=== PATIENT | male | born 1955 | race Caucasian/White ===

== ENCOUNTER 2016-06-19 11:11 | Inpatient (IN) | payer BC, MEDICARE ==
[2016-06-14 14:22] LABS: BASOPHILS 0.2 %; BASOPHILS ABSOLUTE 0.02 10/3/uL (0.0-0.16); EOSINOPHILS ABSOLUTE 0.08 10/3/uL (0.0-0.53); HEMATOCRIT 41.1 % (40.0-51.0); HEMOGLOBIN 12.6 g/dL (13.6-17.8); IMMATURE GRANULOCYTES 0.5 %; IMMATURE GRANULOCYTES ABSOLUTE 0.04 10/3/uL (0.0-0.11); LYMPHOCYTES 27.8 %; MEAN CORPUS HGB CONC 30.7 g/dL (32.0-36.0); MEAN CORPUSCULAR HEMOGLOB 25.9 pg (26.0-34.0); MEAN CORPUSCULAR VOLUME 84.4 fL (80-100); MONOCYTES 6.9 %; MONOCYTES ABSOLUTE 0.57 10/3/uL (0.21-1.20); NEUTROPHILS 63.6 %; NEUTROPHILS ABSOLUTE 5.27 10/3/uL (2.02-8.40); PLATELET COUNT 264 10/3/uL (150-400); RBC DISTRIBUTION WIDTH 13.8 % (12.0-16.0); RED CELL COUNT 4.87 10/6/uL (4.7-6.1); WHITE BLOOD CELLS 8.3 10/3/uL (4.5-10.5)
[2016-06-14 14:23] LABS: MANUAL DIFF NO %
[2016-06-14 14:30] LABS: BUN (BLOOD UREA NITROGEN) 20 MG/DL (6-23); CALCIUM, SERUM 9.2 MG/DL (8.5-10.4); CHLORIDE, SERUM 110 MMOL/L (96-112); CO2 (CARBON DIOXIDE) 29 MMOL/L (24-34); CREATININE 0.86 MG/DL (0.70-1.30); GFR AFRICAN AMERICAN 108 ML/MIN (>=60); GFR NON AFRICAN AMERICAN 94 ML/MIN (>=60); GLUCOSE, SERUM 132 MG/DL (60-99); POTASSIUM, SERUM 3.8 MMOL/L (3.5-5.3); SODIUM, SERUM 146 MMOL/L (135-148)
[2016-06-14 14:33] LABS: INTERNATIONAL NORMAL RATI 1.1 UNITS (-); PARTIAL THROMBO TIME 28.9 SEC (22.5-37.2); PROTIME (NOT ORD) 13.9 SEC (12.0-14.5)
--- NOTE | ~2016-06-19 | CN ---
Consultation Report [facility] [address] [facility] [place]. [address] NAME: CHERISE VALENTINE : 53 STATUS : ADM Chuck PAT#: [id number] AGE: 60 ADM/REG DATE : 06/19/16 MR#: [id number] REPORT SERV DATE: 06/22/16 DICTATED BY: LION AGUSTIN DATE: 06/22/16 REPORT STATUS : Draft TRANSCRIBED BY: MODL DATE: 06/22/16 CARDIOVASCULAR CONSULTATION DATE OF CONSULTATION: This cardiovascular consultation requested by Dr. Alireza Mead. INDICATION: Tachycardia, PVCs. HISTORY OF PRESENT ILLNESS: Mr. Valentine is a 60-year-old patient of my partner, Dr. Riccardo Bernal. He has a previous history of PVCs, after that he is asymptomatic. He was managed conservatively and not on rate control medications as an outpatient. He is admitted with obstructing kidney stones. He is status post bilateral percutaneous nephrostomy tubes and has undergone lithotripsy. He has had a number of urologic procedures this admission. In this setting, his heart rate has been up in the 110 beat per minute range with more frequent PVCs noted on shelter monitor. He complains of no symptoms of chest pain or dyspnea. He feels well. We are consulted for further management. PAST MEDICAL HISTORY: 1. Hypertension. 2. PVCs. 3. Type 2 diabetes. 4. Arthritis. 5. Kidney stones. ALLERGIES: INCLUDE TAMIFLU. HOME MEDICATIONS: Include Norvasc 10 mg daily, Lotensin 40 mg daily, vitamin B 12, Neurontin, HCTZ 25 mg daily, hydrocodone, Skelaxin, Glucophage, Prilosec, and simvastatin 20 mg daily. SOCIAL HISTORY: He does not smoke or drink alcohol. FAMILY HISTORY: There is no family history of early coronary artery disease. REVIEW OF SYSTEMS: A complete review of systems was obtained, which is negative in detail except as mentioned above in the HPI. PHYSICAL EXAMINATION: VITAL SIGNS: Blood pressure 110/70, heart rate of 115, respiratory rate of 14. GENERAL: Comfortable in no acute distress. HEENT: Anicteric. No xanthelasma. Lips without cyanosis. NECK: No JVD. Carotids 2+ and symmetric. No carotid bruits. LUNGS: CTA bilaterally. No wheezes or rhonchi. No accessory muscle use. Consultation Report [facility] [address] [address] NAME: CHERISE VALENTINE : 53 STATUS : ADM Chuck PAT#: [id number] AGE: 60 ADM/REG DATE : 06/19/16 MR#: [id number] REPORT SERV DATE: 06/22/16 DICTATED BY: LION AGUSTIN DATE: 06/22/16 REPORT STATUS : Draft TRANSCRIBED BY: MODL DATE: 06/22/16 CARDIAC: Tachycardic. Regular. Normal S1, S2. ABD: Soft, nontender, nondistended. Normal bowel sounds. No abdominal bruits. EXT: No clubbing, cyanosis or edema 2+ and symmetric distal pulses. SKIN: Warm. Dry. No venous stasis changes. MS: No kyphosis. NEURO/PSYCH: Oriented x3. No anxiety or depression. LABORATORY STUDIES: White count of 14.5, hematocrit of 41.8, INR of 1.1. Creatinine of 1.09, potassium of 3.8. EKG: A 12-lead EKG shows sinus tachycardia, rate of 123 beats per minute. Left anterior fascicular block is noted. QRS duration 120 milliseconds. IMPRESSION: Mr. Valentine is a 60-year-old man with a history of premature ventricular contraction, now with sinus tachycardia postop from a bilateral nephrostomy tube placement and lithotripsy. I think the sinus tachycardia is likely driven by pain. He has no symptoms of dyspnea or chest pain to suggest a pulmonary embolus. I agree with the short- term use of metoprolol 25 mg twice a day, as already prescribed. I do not think he will need long-term metoprolol at discharge. He has to follow up with Dr. Bernal in July. For now, I have not recommended any further evaluations or treatment aside from the above. JOHN/BERNICE Lion Agustin M.D. / [id number] CC: Cheryle Talley M.D.
--- NOTE | ~2016-06-19 | OP ---
Record Of Operation [facility] [address] [place]. [address] NAME: CHERISE VALENTINE : 53 STATUS : ADM Chuck PAT#: [id number] AGE: 60 ADM/REG DATE : 06/19/16 MR#: [id number] REPORT SERV DATE: 06/20/16 DICTATED BY: DALIA ESQUIVEL LEEANNE DATE: 06/19/16 REPORT STATUS : Draft TRANSCRIBED BY: MODL DATE: 06/19/16 DATE OF PROCEDURE: PREOPERATIVE DIAGNOSIS: Right kidney stone. POSTOPERATIVE DIAGNOSIS: Right kidney stone. PROCEDURE PERFORMED: Right percutaneous nephrolithotomy (less than 2 cm). SURGEON: Dalia Esquivel M.D. ANESTHESIA: General. COMPLICATIONS: None. DRAINS: 1. Fields catheter. 2. An 18-Stateless [place] tip catheter as a right nephrostomy tube. 3. A 5-Stateless open-ended catheter as a right antegrade ureteral stent. ESTIMATED BLOOD LOSS: 100 mL. COMPLICATIONS: None. INDICATIONS: Mr. Valentine is a 60-year-old with bilateral branched renal stones. He has intermittently had pain on the right. He has a 1.4-cm stone on that side. He underwent attempted shock wave lithotripsy of this symptomatic lower pole stone, there was essentially no fragmentation. He presents for right PCNL. The plan is for left PCNL in 48 hours' time. TECHNIQUE: An informed consent was obtained. He received Levaquin preoperatively. He was taken to interventional Radiology. Bilateral nephrostomy tube access was obtained. He was brought to the Urology Operating Room, a Fields catheter was placed as were SCDs. He was positioned prone, care was taken to pad all pressure points. The left nephrostomy was left to gravity drainage. The right nephrostomy including the right flank were prepped and draped in sterile fashion, and under fluoroscopic guidance, the access appeared fairly above the 11th rib. This was an upper pole access. I incised the skin, I placed a wire down to the bladder through the nephrostomy access, I removed the nephrostomy access, and placed a second working wire which was also a Super Stiff wire. I used a Jeanette catheter for this. The track of the skin was incised sharply, I dilated the track to 30-Stateless at 12 atmospheres with a NephroMax balloon. The nephrostomy sheath was introduced through the upper pole access, rigid nephroscopy was performed. There was angulation at the UPJ, the stone had been at the lower pole on most recent CT. A large 1-cm fragment was present at the ureteropelvic junction. This was grasped with some difficulty with rigid graspers and extracted without the need for fragmentation. I was able to access the lower pole with a Record Of Operation [address] [place]. [address] NAME: CHERISE VALENTINE : 53 STATUS : ADM Chuck PAT#: [id number] AGE: 60 ADM/REG DATE : 06/19/16 MR#: [id number] REPORT SERV DATE: 06/20/16 DICTATED BY: DALIA ESQUIVEL DATE: 06/19/16 REPORT STATUS : Draft TRANSCRIBED BY: BERNICE DATE: 06/19/16 rigid scope. The flexible cystoscope was advanced entering the lower pole, several smaller stone fragments were present between 1 and 6 mm in diameter. These were individually basket extracted with a zero-tip basket. The 1-mm fragments would not fit in the basket, and as such were left to pass spontaneously. All other calices were inspected, I saw no saw no remaining stones. There was what appeared to be extravasated contrast from outside the collecting system from a nephrostomy tube placement. I placed a 5-Stateless open-ended catheter down to the bladder and placed an 18-Stateless [place] tip catheter over the wire of the nephrostomy tube. The balloon was inflated with 3 mL of dilute contrast. A nephrostogram was performed. There was no extravasation noted. I removed the remaining wires. I secured the nephrostomy tube to the skin level. He was returned supine, extubated, and taken to recovery room in satisfactory condition. POSTOPERATIVE PLAN: 48 hours of nephrostomy tube drainage and to proceed with right PCNL in 2 days' time. [facility]/BERNICE Dalia Esquivel M.D. / [id number] CC: Cheryle Talley M.D.
--- NOTE | ~2016-06-19 | OP ---
Record Of Operation [facility] [address] [place]. [address] NAME: CHERISE VALENTINE : 53 STATUS : ADM Chuck PAT#: [id number] AGE: 60 ADM/REG DATE : 06/19/16 MR#: [id number] REPORT SERV DATE: 06/21/16 DICTATED BY: DALIA ESQUIVEL DATE: 06/21/16 REPORT STATUS : Draft TRANSCRIBED BY: MODL DATE: 06/21/16 DATE OF PROCEDURE: 06/21/2016 PREOPERATIVE DIAGNOSIS: Left kidney stones. POSTOPERATIVE DIAGNOSIS: Left kidney stones. PROCEDURE PERFORMED: Left percutaneous nephrolithotomy (greater than 2 cm). ANESTHESIA: General. BLOOD LOSS: 100 mL. COMPLICATIONS: None. DRAINS: 1. Left double-J ureteral stent. 2. 18-American [place]ill tip catheter as a left nephrostomy tube. SPECIMENS: Stones for gross inspection only. INDICATION: Mr. Valentine is a 60-year-old with bilateral renal stones. He underwent a right PCNL on Friday and had bilateral nephrostomy accesses obtained that day. He presents today for left PCNL. TECHNIQUE: Levaquin was given preoperatively. He was brought to the operating room. General anesthesia was administered. His indwelling right nephrostomy and Fields were left in place. I positioned him prone, care was taken to pad all pressure points. The left nephrostomy access was prepped and draped in a sterile fashion. This was through the lower pole that contained multiple stones up to 1.5 cm in diameter. The Super Stiff wire was placed through the nephrostomy access, down to the level of bladder. I incised the skin to 1 cm. The Jeanette catheter was utilized to place a second safety wire, which was also a Super Stiff wire. I balloon dilated the tract up to 30-American at 14 atmospheres. The 30- American sheath was introduced into the posterior lower pole calyx. Rigid nephroscopy was performed. Multiple stones were encountered in all of the lower pole calices. These were treated with a combination of ultrasonic lithotripsy and removing them with bipolar graspers. After removing all the lower pole stones, I was unable to pass the flexible scope through the lower pole infundibulum. I removed the rigid scope, passed a flexible cystoscope over the wire. There was some lateral splitting of the lower pole infundibulum that extended to the UPJ. Nephrostogram was performed at this point. There was some lateral extravasation. This was a linear mucosal tear in this area. I inspected the mid pole and upper pole calices, no other stones were seen. I placed a 6-American variable length double-J left ureteral stent. The flexible cystoscope was readvanced. I left a wire through the lower pole left nephrostomy access and into the renal pelvis. I placed an 18-American Councill tip catheter as a nephrostomy tube. Record Of Operation [place] [address] [facility] [place]. [address] NAME: CHERISE VALENTINE : 53 STATUS : ADM Chuck PAT#: [id number] AGE: 60 ADM/REG DATE : 06/19/16 MR#: [id number] REPORT SERV DATE: 06/21/16 DICTATED BY: DALIA ESQUIVEL DATE: 06/21/16 REPORT STATUS : Draft TRANSCRIBED BY: BERNICE DATE: 06/21/16 Nephrostogram was repeated. There was good placement of the tube. Extravasation persisted laterally at the lower pole infundibulum/UPJ. The stent was visualized in the bladder. Wires were removed. I placed a sterile dressing. He tolerated this and was taken to the recovery room in satisfactory condition. Plan is for a left nephrostomy and right nephrostomy tube removal on 06/22 and double-J stent removal in two weeks. He will not need a KUB prior to stent removal indication. SUZETTE/BERNICE Dalia Esquivel M.D. / [id number] CC: Cheryle Talley M.D.
--- NOTE | ~2016-06-19 | PREOPHP ---
PreOp History and Physical [facility] [address] [place]. [address] NAME: CHERISE VALENTINE : 53 STATUS : ADM Chuck PAT#: [id number] AGE: 60 ADM/REG DATE : 06/19/16 MR#: [id number] REPORT SERV DATE: 06/19/16 DICTATED BY: SIERRADALIA FALLON DATE: 06/19/16 REPORT STATUS : Draft TRANSCRIBED BY: MODL DATE: 06/19/16 CHIEF COMPLAINT: Bilateral kidney stones. HISTORY OF PRESENT ILLNESS: Mr. Valentine is a 60-year-old with bilateral stones. His stones were intermittently symptomatic with pain. He has had a branched lower pole stone on both sides. But left side is just is larger than 2 cm, the right side is smaller than 2 cm. It has been symptomatic pain on the right most recently. The stone failed once for shock wave lithotripsy. As such, he is presenting for PCNL technique. PAST MEDICAL HISTORY: Cholecystectomy, diabetes, hypertension. MEDICATIONS: Amlodipine, benazepril, Flomax, gabapentin, HCTZ, hydrocodone, metaxalone, metformin that has been held, Zocor, tramadol, omeprazole, B12. ALLERGIES: NONE KNOWN. FAMILY HISTORY: No family history of malignancy. SOCIAL HISTORY: . One child. No alcohol, tobacco, or illicit drug use. REVIEW OF SYSTEMS: Positive for indigestion, hypertension, back pain, intermittent flank pain. No hematuria. No fever. No dysuria. No nausea, vomiting, or recent UTIs. PHYSICAL EXAMINATION: VITAL SIGNS: BP 144/109, pulse 94, respirations 14, afebrile. GENERAL: Pleasant 60-year-old, appearing stated age, in no acute distress. EYES: Sclerae anicteric. LUNGS: Clear. HEART: Regular rate and rhythm. CHEST: Clear anteriorly. ABDOMEN: Soft, nontender, nondistended. No palpable mass. No rebound or guarding. No right or left CVA tenderness. : Bladder is not distended. NEUROLOGIC: He is oriented to person, place, time, and situation. LABS: Hematocrit 41. INR 1.1. Creatinine 0.86, calcium 9.2. IMAGING: Most recent CT was in last summer, it showed bilateral branched stones in both lower poles. KUB in the office showed essentially no fragmentation of the right-sided stone. IMPRESSION: Bilateral kidney stones. PLAN: Mr. Valentine is admitted for bilateral percutaneous nephrolithotomy. His stones are large and intermittently symptomatic. They did not fragment whatsoever with shock wave lithotripsy. I suspect that they are calcium oxalate monohydrate. Alternatives of PreOp History and Physical [address] [place]. [address] NAME: CHERISE VALENTINE : 53 STATUS : ADM Chuck PAT#: [id number] AGE: 60 ADM/REG DATE : 06/19/16 MR#: [id number] REPORT SERV DATE: 06/19/16 DICTATED BY: DALIA ESQUIVEL DATE: 06/19/16 REPORT STATUS : Draft TRANSCRIBED BY: BERNICE DATE: 06/19/16 continued expected management. and ureteroscopic treatment of the stones were discussed. He understands the risk of bleeding, infection, incomplete stone fragmentation, and the possibility that the stones were returned. We will try to manage him with only a unilateral ureteral stent once he is discharged to home. We performed a right PCNL first with left PCNL performed in 48 hours time. [facility]/BERNICE Dalia Esquivel M.D. / [id number] CC: Cheryle Talley M.D.
--- NOTE | ~2016-06-19 | DS ---
Discharge Summary [facility] [address] [place]. [address] NAME: CHERISE VALENTINE : 53 STATUS : DIS IN PAT#: [id number] AGE: 60 ADM/REG DATE : 06/19/16 MR#: [id number] REPORT SERV DATE: 07/01/16 DICTATED BY: DALIA ESQUIVEL DATE: 07/01/16 REPORT STATUS : Draft TRANSCRIBED BY: BERNICE DATE: 07/01/16 Data Collection from hospitalization DISCHARGE DIAGNOSES: 1. Right kidney stone. 2. Diabetes. 3. Hypertension. 4. Premature ventricular contractions. 5. Arthritis. CONSULTATIONS: Lion Higgins M.D. PROCEDURES PERFORMED: 1. Right percutaneous nephrolithotomy (less than 2 cm) on 06/19/2016. 2. Left percutaneous nephrolithotomy (greater than 2 cm) on 06/21/2016. 3. Fluoroscopic access to the right and left kidney on 06/19/2016. PATHOLOGY: Left renal stones - gross analysis only. See gross description. MEDICATIONS: Norvasc 10 mg every morning; Lotensin 40 mg every morning; vitamin B12 1000 mcg daily; Neurontin 400 mg four times a day; hydrochlorothiazide 25 mg every morning; [place] 5/325 tablet twice a day as needed and one to two tablets every six hours as needed, as instructed; Levaquin 750 mg daily; Skelaxin 800 mg twice a day; Glucophage 1000 mg twice a day; Prilosec 20 mg every morning; Pyridium 100 mg three times a day; Zocor 20 mg at bedtime; and Flomax 0.4 mg daily. CONDITION AT DISCHARGE: Stable. DISPOSITION: The patient was discharged home on an 1800-calorie diabetic diet with no concentrated carbohydrates and activities as instructed. He would follow up with me 10 days following discharge. HOSPITAL COURSE: This is a 60-year-old man who has bilateral branched renal stones. He has intermittently had pain on the right. He had a 1.4 cm stone on that side. He underwent attempted shockwave lithotripsy of this symptomatic lower pole stone and there was essentially no fragmentation. He presented for right PCNL. We would plan for left PCNL in about 48 hours. He was admitted to the hospital at this time for further evaluation and treatment. Upon admission, the patient underwent fluoroscopic access to the right and left kidney for impending same-day surgery and next day surgery. The patient was taken to the operating room where he underwent the above-mentioned procedure. He tolerated this well, and there were no complications. On postop day #1, his abdomen was soft and nontender. White blood cell count was 12.7. Creatinine level was 0.76. Levaquin was going to be provided. On 06/21/2016, he was taken back to the operating room where he underwent the above-mentioned procedure. He tolerated this well, and there were no complications. On 06/22/2016, he was seen by Dr. Lion Higgins regarding tachycardia and PVCs. His heart rate had been up in the 110 beats per minute range with more frequent PVCs noted on environmental monitoring technician. He Discharge Summary [address] [address] NAME: CHERISE VALENTINE : 53 STATUS : DIS IN PAT#: [id number] AGE: 60 ADM/REG DATE : 06/19/16 MR#: [id number] REPORT SERV DATE: 07/01/16 DICTATED BY: DALIA ESQUIVEL DATE: 07/01/16 REPORT STATUS : Draft TRANSCRIBED BY: MODKarin DATE: 07/01/16 complained of no symptoms of chest pain or dyspnea. He said he felt well. White count was 14.5. Creatinine was now 1.09. INR level was 1.1. A 12-lead EKG showed sinus tachycardia with a rate of 123 beats per minute. Left anterior fascicular block was noted. QRS duration was 120 milliseconds. It was felt that the sinus tachycardia was likely driven by pain. He had no symptoms of dyspnea or chest pain to suggest pulmonary embolus. He agreed with the short-term use of metoprolol twice a day as already prescribed. He did not think we would need long-term metoprolol at discharge. He did not recommend any further evaluation or treatment aside from this. Discharge planning was performed. He continued to do well. On 06/23/2016, heart rate was under much better control. He had no nausea, vomiting, or chest pain. Tachycardia had improved. Nephrostomy dressings were changed. Discharge instructions were given. Due to his improved and stable condition, he was discharged home with the above-stated instructions. Information collected by: Tami Muhammad I submit the above information as my discharge summary. TG/DIONICIOL Dalia Esquivel M.D. / [id number] CC: Cheryle Talley M.D. William Warren, M.D.
[~2016-06-19 11:11] MED LIST: CYANO1000T PO; GLUCOPHAGE1000 MG PO; HCTZ25B PO; HYDROCHLOROT25 MG PO; LORTAB 5 PO; LOTE40 PO; MULTIVITAMI1 PO; NEUR400 PO; NORCO1 TA1 PO; NORV10 PO; PRILOSEC OTC20 MG PO; SKELAXIN8 PO; ZOCOR20 PO
[2016-06-20 05:35] LABS: BASOPHILS 0.1 %; BASOPHILS ABSOLUTE 0.01 10/3/uL (0.0-0.16); EOSINOPHILS 0 %; HEMOGLOBIN 12.2 g/dL (13.6-17.8); IMMATURE GRANULOCYTES 0.2 %; IMMATURE GRANULOCYTES ABSOLUTE 0.03 10/3/uL (0.0-0.11); LYMPHOCYTES 9.4 %; LYMPHOCYTES ABSOLUTE 1.19 10/3/uL (0.67-4.30); MEAN CORPUS HGB CONC 31.3 g/dL (32.0-36.0); MEAN CORPUSCULAR HEMOGLOB 26.7 pg (26.0-34.0); MEAN CORPUSCULAR VOLUME 85.3 fL (80-100); MEAN PLATELET VOLUME 10.6 fL (9.2-13.0); MONOCYTES 10.5 %; MONOCYTES ABSOLUTE 1.34 10/3/uL (0.21-1.20); NEUTROPHILS 79.8 %; NEUTROPHILS ABSOLUTE 10.14 10/3/uL (2.02-8.40); PLATELET COUNT 259 10/3/uL (150-400); RBC DISTRIBUTION WIDTH 13.9 % (12.0-16.0); RED CELL COUNT 4.57 10/6/uL (4.7-6.1)
[2016-06-20 05:38] LABS: MANUAL DIFF NO %; WHITE BLOOD CELLS 12.7 10/3/uL (4.5-10.5)
[2016-06-20 05:50] LABS: CHLORIDE, SERUM 104 MMOL/L (96-112); CO2 (CARBON DIOXIDE) 27 MMOL/L (24-34); CREATININE 0.76 MG/DL (0.70-1.30); GFR AFRICAN AMERICAN 114 ML/MIN (>=60); GFR NON AFRICAN AMERICAN 98 ML/MIN (>=60); GLUCOSE, SERUM 129 MG/DL (60-99); POTASSIUM, SERUM 3.8 MMOL/L (3.5-5.3); SODIUM, SERUM 142 MMOL/L (135-148)
[2016-06-20 05:57] LABS: BUN (BLOOD UREA NITROGEN) 12 MG/DL (6-23)
[2016-06-21 20:05] LABS: BASOPHILS 0.1 %; BASOPHILS ABSOLUTE 0.01 10/3/uL (0.0-0.16); EOSINOPHILS 0.1 %; EOSINOPHILS ABSOLUTE 0.01 10/3/uL (0.0-0.53); HEMATOCRIT 41.8 % (40.0-51.0); IMMATURE GRANULOCYTES 0.4 %; IMMATURE GRANULOCYTES ABSOLUTE 0.06 10/3/uL (0.0-0.11); LYMPHOCYTES 15.5 %; LYMPHOCYTES ABSOLUTE 2.24 10/3/uL (0.67-4.30); MEAN CORPUS HGB CONC 31.1 g/dL (32.0-36.0); MEAN CORPUSCULAR HEMOGLOB 27.1 pg (26.0-34.0); MEAN CORPUSCULAR VOLUME 87.3 fL (80-100); MEAN PLATELET VOLUME 11.1 fL (9.2-13.0); MONOCYTES 14.2 %; MONOCYTES ABSOLUTE 2.05 10/3/uL (0.21-1.20); NEUTROPHILS 69.7 %; NEUTROPHILS ABSOLUTE 10.11 10/3/uL (2.02-8.40); PLATELET COUNT 262 10/3/uL (150-400); RBC DISTRIBUTION WIDTH 14.3 % (12.0-16.0); RED CELL COUNT 4.79 10/6/uL (4.7-6.1); WHITE BLOOD CELLS 14.5 10/3/uL (4.5-10.5)
[2016-06-21 20:11] LABS: MANUAL DIFF NO %
[2016-06-21 20:18] LABS: BUN (BLOOD UREA NITROGEN) 13 MG/DL (6-23); CALCIUM, SERUM 8.2 MG/DL (8.5-10.4); CHLORIDE, SERUM 104 MMOL/L (96-112); CO2 (CARBON DIOXIDE) 28 MMOL/L (24-34); CREATININE 1.09 MG/DL (0.70-1.30); GFR AFRICAN AMERICAN 84 ML/MIN (>=60); GFR NON AFRICAN AMERICAN 73 ML/MIN (>=60); GLUCOSE, SERUM 152 MG/DL (60-99); POTASSIUM, SERUM 3.8 MMOL/L (3.5-5.3); SODIUM, SERUM 143 MMOL/L (135-148)
[2016-06-22 07:44] LABS: BUN (BLOOD UREA NITROGEN) 16 MG/DL (6-23); CALCIUM, SERUM 8.3 MG/DL (8.5-10.4); CHLORIDE, SERUM 105 MMOL/L (96-112); CREATININE 0.98 MG/DL (0.70-1.30); GFR AFRICAN AMERICAN 96 ML/MIN (>=60); GFR NON AFRICAN AMERICAN 83 ML/MIN (>=60); GLUCOSE, SERUM 122 MG/DL (60-99); POTASSIUM, SERUM 4.1 MMOL/L (3.5-5.3); SODIUM, SERUM 139 MMOL/L (135-148)
[2016-06-22 07:45] LABS: CO2 (CARBON DIOXIDE) 23 MMOL/L (24-34)
[2016-06-22 07:57] LABS: MEAN CORPUS HGB CONC 30.8 g/dL (32.0-36.0); MEAN CORPUSCULAR HEMOGLOB 27.1 pg (26.0-34.0); MEAN CORPUSCULAR VOLUME 88.2 fL (80-100); PLATELET COUNT 265 10/3/uL (150-400); RBC DISTRIBUTION WIDTH 14.8 % (12.0-16.0); RED CELL COUNT 4.42 10/6/uL (4.7-6.1); WHITE BLOOD CELLS 14.9 10/3/uL (4.5-10.5)
[2016-06-22 08:13] LABS: MANUAL DIFF YES %
[2016-06-22 09:04] LABS: BAND NEUTROPHILS 1 %; LYMPHOCYTES 11 %; LYMPHOCYTES ABSOLUTE (CALC) 1.64 10/3/uL (0.67-4.30); MONOCYTES 23 %; MONOCYTES ABSOLUTE (CALC) 3.43 10/3/uL (0.21-1.20); NEUTROPHILS ABSOLUTE (CALC) 9.83 10/3/uL (2.02-8.40); PLATELET ESTIMATE ADQ (ADEQUATE); SEGMENTED NEUTROPHIL (0) 65 %; TOTAL NUCLEATED CELLS 100
[2016-06-22 09:05] LABS: RBC MORPHOLOGY NORM (NORMAL)
[2016-06-23 07:23] LABS: BASOPHILS 0.1 %; BASOPHILS ABSOLUTE 0.01 10/3/uL (0.0-0.16); EOSINOPHILS 0.6 %; EOSINOPHILS ABSOLUTE 0.06 10/3/uL (0.0-0.53); HEMATOCRIT 35.6 % (40.0-51.0); IMMATURE GRANULOCYTES 0.3 %; IMMATURE GRANULOCYTES ABSOLUTE 0.03 10/3/uL (0.0-0.11); LYMPHOCYTES 17.1 %; LYMPHOCYTES ABSOLUTE 1.62 10/3/uL (0.67-4.30); MEAN CORPUS HGB CONC 30.9 g/dL (32.0-36.0); MEAN CORPUSCULAR HEMOGLOB 26.3 pg (26.0-34.0); MEAN PLATELET VOLUME 11.3 fL (9.2-13.0); MONOCYTES ABSOLUTE 1.33 10/3/uL (0.21-1.20); NEUTROPHILS 67.9 %; NEUTROPHILS ABSOLUTE 6.44 10/3/uL (2.02-8.40); PLATELET COUNT 234 10/3/uL (150-400); RBC DISTRIBUTION WIDTH 14.7 % (12.0-16.0); RED CELL COUNT 4.18 10/6/uL (4.7-6.1); WHITE BLOOD CELLS 9.5 10/3/uL (4.5-10.5)
[2016-06-23 07:28] LABS: MANUAL DIFF NO %; MEAN CORPUSCULAR VOLUME 85.2 fL (80-100)
[2016-06-23] MEDS ORDERED: NORCO1 TA1 PO (12:04)
[2016-06-23] MEDS ORDERED: LEVAQUIN750 MG PO (12:05)
[2016-06-23] MEDS ORDERED: FLOMAX4 PO (12:05)
[2016-06-23] MEDS ORDERED: PYR100B PO (12:05)
[2016-06-26 13:00] LABS: SOURCE OF STONE Right Kidney (()); STONE COMPOSITION TWO DNR (())
[2016-09-23] MEDS ORDERED: NITROSTAT0.4 MG SL (09:29)
[2016-09-23] MEDS ORDERED: NORV5 PO (09:30)
[2016-09-23] MEDS ORDERED: COREG6 PO (09:30)
== END 2016-06-23 14:06 | disposition home or self-care (01) | DRG 661 ==
LOC: IMGHOLD 11:11 → RADHOLD 11:17 → IMGHOLD 18:29 → 4SO 18:30
PROVIDERS: Urology
PROC: 0T9130Z Drainage of Left Kidney with Drainage Device, Percutaneous Approach (ICD-10-PCS; 2016-06-19)
PROC: 0T9030Z Drainage of Right Kidney with Drainage Device, Percutaneous Approach (ICD-10-PCS; 2016-06-19)
PROC: 0TC33ZZ Extirpation of Matter from Right Kidney Pelvis, Percutaneous Approach (ICD-10-PCS; principal; 2016-06-19 14:45)
PROC: 0T763DZ Dilation of Right Ureter with Intraluminal Device, Percutaneous Approach (ICD-10-PCS; principal; 2016-06-19 14:45)
PROC: BT111ZZ Fluoroscopy of Right Kidney using Low Osmolar Contrast (ICD-10-PCS; principal; 2016-06-19 14:45)
PROC: BT121ZZ Fluoroscopy of Left Kidney using Low Osmolar Contrast (ICD-10-PCS; 2016-06-21)
PROC: 0TC13ZZ Extirpation of Matter from Left Kidney, Percutaneous Approach (ICD-10-PCS; 2016-06-21)
PROC: 0T773DZ Dilation of Left Ureter with Intraluminal Device, Percutaneous Approach (ICD-10-PCS; 2016-06-21)
DX: N20.0 Calculus of kidney (principal); I10 Essential (primary) hypertension; E11.9 Type 2 diabetes mellitus without complications; M19.90 Unspecified osteoarthritis, unspecified site; Z88.7 Allergy status to serum and vaccine; I49.3 Ventricular premature depolarization; R00.0 Tachycardia, unspecified
CPT/HCPCS: 50395; 50433; 71010; 71020; 80048; 82365; 82962; 83735; 85014; 85018; 85025; 85049; 85610; 85730; 88300; 93005; A9270-GY; C1725; C1726; C1729; C1758; C1769; C1892; C1894; C2617; J1580; J1956; J2250; J2270; J2370; J2405; J2710; J3010; Q9967